=== PATIENT | female | born 1980 | race Caucasian/White ===

== ENCOUNTER → 2021-04-24 | Outpatient (CLI) | payer MEDICAID ==
[~2021-04-24] VITALS: Ht 160 cm; Wt 55.9 kg
[~2021-04-24] MED LIST: GADOBUTROL 7.5 MMOL/7.5 ML (GADAVIST) VIAL IV ONE; IOHEXOL 300 MG/ML 50 ML (OMNIPAQUE 300) VIAL IV ONE
--- NOTE | 2021-04-24 14:50 | Diagnostic Imaging Report ---
INDICATION: Painful limitations and range of motion initial improvements with PET but symptoms have recurred. The planned procedure was discussed with the patient informed consent obtained. Utilizing aseptic technique and following local anesthesia 1% lidocaine a 20-gauge needle was advanced into the glenohumeral joint under fluoroscopic observation. Proper position was confirmed by free flow of contrast media opacifying the joint capsule. We instilled a volume of about 18 mL's of solution containing saline, iodinated contrast and gadolinium into the joint. Needle removed hemostasis . Patient proceeds to the MR suite for further evaluation. IMPRESSION: Successful right shoulder arthrography with MRI pending no apparent complication. Dictated by: Dictated on workstation # [id number]
--- NOTE | 2021-04-24 15:23 | Diagnostic Imaging Report ---
EXAMINATION: Magnetic resonance imaging of the right shoulder with intra-articular contrast. DATE: April 24, 2021. COMPARISON: Right shoulder arthrogram April 24, 2021. HISTORY: 40-year-old female, right shoulder pain. TECHNIQUE: Magnetic Resonance Imaging sequences were performed of the shoulder following the intra-articular administration of contrast. FINDINGS: ROTATOR CUFF, LIGAMENTS, TENDONS, AND MUSCLES: The supraspinatus, infraspinatus, teres minor, and subscapularis tendons and muscles are intact. There is normal rotator cuff muscle bulk and signal. LONG HEAD OF BICEPS: The proximal long head of the biceps tendon is intact and normally positioned within the bicipital groove. GLENOHUMERAL JOINT: The humeral head is well positioned relative to the glenoid. The labrum is intact. There is no identified paralabral cyst. There is identification of portions of the anterior band of the inferior glenohumeral ligament complex. The posterior band is not seen and torn, at least from its humeral attachment site. There is abnormal extravasation of contrast below the expected margins of the axillary pouch. There is no identified glenohumeral cartilage defect. There is no identified intra-articular body or prominent synovitis. ACROMIOCLAVICULAR JOINT: The acromioclavicular joint is normally aligned. The coracoclavicular and coracoacromial ligaments are intact. There are moderate acromioclavicular degenerative changes with 1 to 2 mm undersurface osteophytes. BONE: There is no os acromiale. There is no Hill-Sachs deformity. There is degenerative related edema adjacent to the acromioclavicular joint. There is no acute fracture, bone contusion, or evidence of osteonecrosis. BURSAE AND SOFT TISSUES: The bursae and soft tissue surrounding the shoulder are unremarkable. IMPRESSION: 1. Intact rotator cuff and proximal long head of the biceps tendon. 2. Complete tear of the posterior band of the inferior glenohumeral ligament complex at least from its humeral attachment site. At least portions of the anterior band are intact. 3. No identified labral tear or glenohumeral cartilage defect. 4. No acute fracture, bone contusion, or abnormal bone morphology. 5. Moderate acromioclavicular degenerative changes with 1 to 2 mm undersurface osteophytes. Dictated by: Dictated on workstation # [id number]
== END ==
LOC: RAD 13:45
PROVIDERS: ATTEND Orthopaedic Surgery
DX: S43.431A Superior glenoid labrum lesion of right shoulder, initial encounter (principal); M19.011 Primary osteoarthritis, right shoulder; M25.711 Osteophyte, right shoulder; X58.XXXA Exposure to other specified factors, initial encounter
CPT/HCPCS: 23350; 73040; 73222